=== PATIENT | male | born 1955 | race Caucasian/White ===

== ENCOUNTER → 2016-08-09 | Outpatient (CLI) | payer BC ==
[~2016-08-09] MED LIST: ALLO100T PO; ASPI-999 PO; LACT1CAP39 PO; MELO15TA39 PO; MULT1TAB69 PO; OXYC-465 PO; OXYC5CAP18 PO; Oxycodone Hcl PO; SENN-20 PO
--- NOTE | 2016-08-09 09:30 | Diagnostic Imaging Report ---
INDICATION: Medial knee pain. EXAMINATION: Right knee on 08/09/2016. TECHNIQUE: Three Views of the right knee were performed. FINDINGS: Moderate medial compartment narrowing is seen with no fractures or dislocations appreciated. Medial patellofemoral narrowing is also noted. There is minimal joint fluid. IMPRESSION: Degenerative findings as described with no acute osseous abnormality. Dictated by: Dictated on workstation # [id number]
== END ==
LOC: RAD 07:31
PROVIDERS: ATTEND Nurse Practitioner Family
DX: M17.11 Unilateral primary osteoarthritis, right knee (principal)
CPT/HCPCS: 73562

== ENCOUNTER → 2017-03-16 | Outpatient (CLI) | payer OTHER, BC ==
--- NOTE | 2017-03-16 11:38 | Diagnostic Imaging Report ---
Three views of the facial bones. INDICATION: Headache. FINDINGS: There is no obvious displaced facial fracture seen. The right frontal sinus is hypoplastic. The left frontal sinus, the maxillary sinuses, the ethmoidal air cells, sphenoidal sinuses and the mastoid air cells appears to be overall aerated with no obvious significant opacification. IMPRESSION: No definite abnormality. Dictated by: Dictated on workstation # [id number]
== END ==
LOC: RAD 08:44
PROVIDERS: ATTEND Nurse Practitioner Family
DX: R51 Headache (principal)
CPT/HCPCS: 70150

== ENCOUNTER → 2021-05-10 | Outpatient (CLI) | payer BC ==
[~2021-05-10] MED LIST changes: +MULT-567 PO; -MULT1TAB69 PO; +OXC5T PO; -OXYC-465 PO; +OXYC-556 PO; -OXYC5CAP18 PO
--- NOTE | 2021-05-10 09:58 | Diagnostic Imaging Report ---
CLINICAL INDICATION: Patient with shortness of breath and fatigue. EXAM: Chest x-ray PA and lateral views. COMPARISON: 09/19/2016. FINDINGS: Lungs/pleura: Lungs are clear. There is no pneumothorax. There is no pleural effusion. Mediastinum: Unremarkable. Pulmonary vasculature: Unremarkable. Heart: Unremarkable. Bones/extrathoracic soft tissue: There is a chronic-appearing anterior wedge compression deformity of a mid to lower thoracic vertebra.. IMPRESSION: There is no radiographic evidence of acute cardiopulmonary process. Dictated by: Dictated on workstation # [id number]
== END ==
LOC: RT 09:13
PROVIDERS: ATTEND Family Medicine
DX: R06.02 Shortness of breath (principal); R53.83 Other fatigue
CPT/HCPCS: 71046; 93005

== ENCOUNTER → 2021-05-11 | Outpatient (CLI) | payer BC ==
[2021-05-11 12:28] LABS: CREATINE KINASE 81 U/L (30-200)
== END ==
LOC: LAB 11:36
PROVIDERS: ATTEND Family Medicine
DX: R94.31 Abnormal electrocardiogram [ECG] [EKG] (principal); R06.00 Dyspnea, unspecified
CPT/HCPCS: 36415; 82550; 84484

== ENCOUNTER → 2021-05-27 | Outpatient (CLI) | payer BC ==
[~2021-05-27] MED LIST changes: +CATHETER FLUSH 10 ML SYR IV PRN
[2021-05-27 12:38] VITALS: BP 142/84
--- NOTE | 2021-05-28 11:16 | NUCLEAR STRESS TEST ---
TREADMILL NUCLEAR STRESS TEST Date of procedure: 05/27/2021. Primary care provider: Helena Chang MD. Admitting physician: Lacho Shaikh Jr., MD. INDICATION: Abnormal electrocardiogram. BASELINE ELECTROCARDIOGRAM: Sinus bradycardia at 59 bpm with low voltage in the precordial leads and possible lateral myocardial infarction. STRESS TEST PROCEDURE: The patient was exercised for a total of 6 minutes and 30 seconds of the standard Ashok protocol achieving a maximum MET level of 7.9. The resting heart rate was 59 bpm and the peak heart rate was 142 bpm, which represents 92% of the maximum predicted heart rate. The resting blood pressure was 142/73 mmHg and the peak blood pressure was 194/73 mmHg. This represents a normal heart rate and a normal blood pressure response to exercise. The test was stopped due to target heart rate attained. There was no chest discomfort during the test. There were no arrhythmias during the test. There were no significant stress induced electrocardiogram changes. The patient exhibited good exercise capacity for age. NUCLEAR PROCEDURE: The patient was administered 10.9 mCi of intravenous technetium 99m Tetrofosmin at rest for the rest images. The patient was subsequently administered 32 mCi of intravenous technetium 99 M Tetrofosmin at peak stress for the stress images. Following an appropriate wait after each injection, imaging was obtained. The images were subsequently processed and reformatted in the usual views. Gated imaging was obtained. The image quality was adequate with a mild degree of gastrointestinal attenuation artifact. CT attenuation correction was used as a adjunct to standard imaging. Both the corrected and uncorrected images were reviewed for interpretation. NUCLEAR RESULTS: There was normal myocardial perfusion in all segments without evidence of infarction or ischemia. There was normal left ventricular chamber size with an end-diastolic volume of 68 mL and an end-systolic volume of 25 mL. There was no evidence of transient ischemic dilatation. The TID ratio was 1.04. There was normal wall motion in all segments with a calculated ejection fracti on of 63%. IMPRESSION: 1. Normal heart rate and blood pressure response to exercise. 2. There was no exercise-induced chest discomfort, arrhythmias, or acute electrocardiogram changes during the test. 3. The patient exhibited good exercise capacity for age at 6 minutes and 30 seconds of the Ashok protocol. 4. There was normal myocardial perfusion in all segments without evidence of infarction or ischemia. 5. There was normal wall motion in all segments with a calculated ejection fraction of 63%. Certain portions of this document may have been dictated utilizing voice recognition technology. Inherent to this technology, typographical and grammatical errors may exist. As much as I am diligent to identify and correct these mistakes, some errors may remain in the document. LACHO SHAIKH JR, MD May 28, 2021 11:16
== END ==
LOC: CARD 11:00
PROVIDERS: ATTEND Internal Medicine Cardiovascular Disease
DX: I51.7 Cardiomegaly (principal); I35.8 Other nonrheumatic aortic valve disorders
CPT/HCPCS: 78452; 93017; 93306; A9502

== ENCOUNTER → 2021-06-22 | Outpatient (CLI) | payer BC ==
[~2021-06-22] MED LIST changes: -CATHETER FLUSH 10 ML SYR IV PRN
--- NOTE | 2021-06-22 15:13 | Diagnostic Imaging Report ---
INDICATION: Wood foreign body noted in the right elbow. TIME OF EXAM: 2:40 PM. FINDINGS: Three views of the right elbow were obtained. There is a large enthesophyte arising from the olecranon. Elbow alignment is normal. No fracture, dislocation, or effusion is identified. No definite radiopaque soft tissue foreign body is identified. IMPRESSION: No acute feature detected. Dictated by: Dictated on workstation # [id number]
== END ==
LOC: RAD 14:00
PROVIDERS: ATTEND Nurse Practitioner Family
DX: Z18.33 Retained wood fragments (principal); M25.521 Pain in right elbow
CPT/HCPCS: 73080

== ENCOUNTER 2022-07-07 05:35 | Outpatient (CLI) | payer BC ==
[~2022-07-07] VITALS: Ht 182.9 cm; Wt 88.6 kg
[2022-07-11] MEDS ORDERED: MELO15TA39 PO (12:02)
[2022-07-11] MEDS ORDERED: [UNRECOGNIZED DRUG - REMARK] (12:02)
[2022-07-11] MEDS ORDERED: OMEP-401 PO (12:02)
== END 2022-07-11 16:36 ==
LOC: PREOP 05:35
PROVIDERS: ATTEND Otolaryngology Otolaryngology/Facial Plastic Surgery
DX: Z01.818 Encounter for other preprocedural examination (principal); J34.2 Deviated nasal septum; J34.3 Hypertrophy of nasal turbinates

== ENCOUNTER 2022-07-14 05:54 | Day surgery (SDC) | payer BC ==
[2022-07-14] VITALS (11 sets, daily range): BP systolic 122–144; BP diastolic 67–81
[~2022-07-14] VITALS: Ht 183 cm; Wt 89.0 kg
[~2022-07-14 05:54] MED LIST changes: +OMEP-401 PO; +[UNRECOGNIZED DRUG - REMARK]
[2022-07-14] MEDS ORDERED: LACTATED RINGERS 1,000 ML IV PRN (06:30)
[2022-07-14 06:31] LABS: BASOPHILS % (AUTO) 0 % (0-10); EOSINOPHILS # (AUTO) 0.2 10^3/uL (0.0-0.3); EOSINOPHILS % (AUTO) 2 % (0-10); HEMATOCRIT 44 % (40-54); HEMOGLOBIN 15.3 g/dL (13.3-17.7); LYMPHOCYTES # (AUTO) 1.7 10^3/uL (1.0-4.0); LYMPHOCYTES % (AUTO) 27 % (12-44); MEAN CORPUSCULAR HEMOGLOBIN 31 pg (25-34); MEAN CORPUSCULAR HGB CONC 35 g/dL (32-36); MEAN CORPUSCULAR VOLUME 88 fL (80-99); MEAN PLATELET VOLUME 10.5 fL (9.0-12.2); MONOCYTES # (AUTO) 0.6 10^3/uL (0.0-1.0); MONOCYTES % (AUTO) 10 % (0-12); NEUTROPHILS # (AUTO) 3.8 10^3/uL (1.8-7.8); NEUTROPHILS % (AUTO) 61 % (42-75); PLATELET COUNT 188 10^3/uL (130-400); WHITE BLOOD COUNT 6.2 10^3/uL (4.3-11.0)
[2022-07-14 06:43] LABS: POTASSIUM 3.7 MMOL/L (3.6-5.0)
[2022-07-14] MEDS ORDERED: BSS 15 ML ONE (06:43)
[2022-07-14] MEDS ORDERED: PHENYLEPHRINE 0.5% NASAL SPR (NEO-SYNEPHRINE) REG ONE ×2 (06:43→07:37)
[2022-07-14] MEDS ORDERED: LIDOCAINE/EPI 1%-1:100,000 (XYLOCAINE) 20ML ONE (06:43)
[2022-07-14] MEDS ORDERED: COCAINE HCL 4% 2 ML SYR ONE (06:43)
[2022-07-14 06:44] LABS: CALCIUM 8.4 MG/DL (8.5-10.1)
[2022-07-14] MEDS ORDERED: FAMOTIDINE 20MG/2ML IV (PEPCID) IVP ONE (06:45)
[2022-07-14] MEDS ORDERED: ONDANSETRON 4 MG/2 ML (SDV) Z0FRAN IVP ONE (06:45)
[2022-07-14 06:48] LABS: CREATININE SERUM 1.08 MG/DL (0.60-1.30)
--- NOTE | 2022-07-14 07:02 | Progress Note-Pre Operative ---
Pre-Operative Progress Note Date of Available H&P: Jul 14, 2022 Date H&P Reviewed: Jul 14, 2022 Time H&P Reviewed: 06:30 History & Physical: H&P Reviewed, Patient Examed, No changes noted Changes from last HP none Pre-Operative Diagnosis: Deviated Nasal Septum, Bialt Hyper of Inf Turbs NADEEM LUJAN MD Jul 14, 2022 07:02
--- NOTE | 2022-07-14 07:02 | Progress Note-Post Operative ---
Post-Operative Progess Note Surgeon (s)/Gelatin Plant Supervisor (s) Surgeon NADEEM LUJAN MD Gelatin Plant Supervisor n/a Pre-Operative Diagnosis Deviated Nasal Septum, Bialt Hyper of Inf Turbs Post-Operative Diagnosis same Post-Op Procedure Note Date of Procedure: Jul 14, 2022 Name of Procedure Performed: Nasal Septoplasty, Bilateral Partial Reduction of the inferior Turbinates Description & Findings Description and Findings: n/a Anesthesia Type get Estimated Blood Loss minimal Packing none. Specimen(s) collected/removed nasal septum NADEEM LUJAN MD Jul 14, 2022 07:02
[2022-07-14] MEDS ORDERED: ONDANSETRON 4 MG/2 ML (SDV) Z0FRAN ONE ×2 (07:06→08:20)
[2022-07-14] MEDS ORDERED: GLYCOPYRROLATE 0.2 MG/ML (ROBINUL) 2 ML VIAL ONE ×2 (07:06→08:19)
[2022-07-14] MEDS ORDERED: proPOfol 200 MG/20 ML (DIPRIVAN) VIAL IV ONE (07:06)
[2022-07-14] MEDS ORDERED: LIDOCAINE PF 2% 5 ML (XYLOCAINE) VIAL ONE (07:06)
[2022-07-14] MEDS ORDERED: fentaNYL INJ 100 MCG/2 ML AMP ONE (07:07)
[2022-07-14] MEDS ORDERED: D5 1/2 NS W/KCL 20 MEQ/L 1,000 ML IV SCH (07:15)
[2022-07-14] MEDS ORDERED: HYDROcodone/APAP 5 MG/325 MG (LORTAB) TAB PO PRN (07:15)
[2022-07-14] MEDS ORDERED: PROMETHAZINE INJ 25 MG/ML (PHENERGAN) AMP IVP PRN (07:15)
[2022-07-14] MEDS ORDERED: LIDOCAINE/EPI 1%-1:100,000 (XYLOCAINE) 20ML INJ ONE (07:37)
[2022-07-14] MEDS ORDERED: COCAINE HCL 4% 2 ML SYR NS ONE (07:38)
[2022-07-14] MEDS ORDERED: BSS 15 ML IR ONE (07:39)
[2022-07-14] MEDS ORDERED: ROCURONIUM 50 MG/5 ML (ZEMURON) VIAL IV ONE (08:19)
[2022-07-14] MEDS ORDERED: NEOSTIGMINE (BLOXIVERZ ) 1 MG/1ML 10 ML VIAL ONE (08:19)
[2022-07-14] MEDS ORDERED: SEVOFLURANE (ULTANE) 15 ML INHAL SOLN ONE (09:11)
--- NOTE | 2022-07-14 11:21 | Anesthesia-General Post-Op ---
General Patient Condition Mental Status/LOC: Same as Preop Cardiovascular: Satisfactory Nausea/Vomiting: Absent Respiratory: Satisfactory Pain: Controlled Complications: Absent Post Op Complications Complications None Follow Up Care/Instructions Patient Instructions None needed. Anesthesia/Patient Condition Patient Condition Patient is doing well, no complaints, stable vital signs, no apparent adverse anesthesia problems. No complications reported per nursing. ANNETTE RODRIGUEZ CRNA Jul 14, 2022 11:21
== END 2022-07-14 09:52 | disposition home or self-care (01) ==
LOC: SDC 05:54
PROVIDERS: ATTEND Otolaryngology Otolaryngology/Facial Plastic Surgery
DX: J34.2 Deviated nasal septum (principal); J34.89 Other specified disorders of nose and nasal sinuses; J34.3 Hypertrophy of nasal turbinates; H69.83 Other specified disorders of Eustachian tube, bilateral; H61.21 Impacted cerumen, right ear
CPT/HCPCS: 36415; 80048; 85025; 87081; 93005